=== PATIENT | female | born 1995 | race Caucasian/White ===

== ENCOUNTER 2022-03-13 09:18 | Emergency (ER) | payer BC, SELFPAY ==
[2022-03-13 09:27] VITALS: BP 118/84; PULSE 78; RESP 18; TEMP 36.4; O2SAT 98; BMI 41.0
--- NOTE | 2022-03-13 09:49 | CRLHL7_ITS ---
For Patients: As a result of the Century Cures Act, medical imaging exams and procedure reports are released immediately into your electronic medical record. You may view this report before your referring provider. If you have questions, please contact your health care provider. Indication: Pain Technique: Three views right ankle Comparison: No comparison Findings: Normal alignment. No acute fractures or acute abnormalities. Talar Dome intact. Impression: Dictated by Kina Galicia MD @ 03/13/2022 11:11:24 AM (Electronically Signed)
--- NOTE | 2022-03-13 10:07 | ED_ITS ---
HPI - Extremity Injury (Lower) General Date Seen: 03/13/22 Chief Complaint: Extremity Pain/Injury, Lower Stated Complaint: No weight on right ankle Time Seen by Provider: 03/13/22 09:19 Source: patient Mode of arrival: ambulatory Limitations: no limitations History of Present Illness HPI Narrative: Patient is a nice 26-year-old female presents here with right heel pain, inability to bear weight on her heel. It was sore yesterday but worse today, she has a history of ankle issues, and head which she describes is nonspecific tendon issues in the past., any time she bears weight she has intense pain over this area, she localizes back to her heel region. Does not remember a pop, or pull, or no history of previous rupture. Eyes any numbness tingling or weakness, she thinks it is a little bit swollen, but there is no redness, and no fevers chills or other issues. complaint: other Onset (ago): hour(s) Injury: Right: ankle Type of Injury: other Severity: moderate Relieving factors: nothing Exacerbating factors: weight bearing and movement Context: other Other symptoms: none Treatments prior to arrival: cold therapy and NSAIDS Review of Systems Status of ROS: Reports: 6 or more systems reviewed and unremarkable except as noted in History and below [facility] Social History Smoking Status: Current every day smoker What tobacco products do you use: cigarettes Do you use any of these nicotine containing products: None Second hand tobacco smoke exposure: Yes How often do you have a drink containing alcohol: monthly or less How many standard drinks containing alcohol do you have on a typical day: 1 or 2 How often do you have six or more drinks on one occasion: Never AUDIT-C Alcohol total score: 1 Non-prescribed substance use: denies use service: No Exam Narrative: Exam Narrative: Examination reveals an nice lady in no apparent distress her heel is kept in the plantar flex position, her a forefoot has no tenderness to palpation, she does have a tattoo over this area, which is old she tells me. There is no swelling, DP and posterior tibial pulses are normal, a little bit of soreness over the anterior Talo fib area, she is tender to palpation over the insertion of the Achilles on the calcaneus, and above this along the mariam 10 dull region. Do not feel a step-off, and she has a normal Jules test. Any sort of dorsiflexion of her front reproduces her discomfort.. Const: Vital Signs, click to edit/add: Vital Signs - 24 hr 03/13/22 09:27 Temperature 97.6 F Pulse Rate [Right Pulse Oximeter] 78 Respiratory Rate 18 Blood Pressure [Ri ght Upper Arm] 118/84 Pulse Oximetry 98 Oxygen Delivery Me thod Room Air Course Course Hospital Course: I did do an ultrasound limited of the right Achilles tendon, and the insertion on the calcaneus, this showed a small amount of fluid around the tendon, but the tendon moves through good range of motion she is able to come through to neutral position. Your some tenderness and some pain associated with this. I think this is more of a Achilles peritendinitis, I do not see any evidence of a ruptured Achilles. Vital Signs Vital signs: Initial Vital Signs Temperature 97.6 F 03/13/22 09:27 Temperature Source Temporal Artery Scan 03/13/22 09:27 Pulse Rate 78 03/13/22 09:27 Respiratory Rate 18 03/13/22 09:27 Blood Pressure 118/84 03/13/22 09:27 Blood Pressure Mean 95 03/13/22 09:27 Blood Pressure Position Sitting 03/13/22 09:27 Pulse Oximetry 98 03/13/22 09:27 Oxygen Delivery Method 03/13/22 09:27 Vital Signs Temperature 97.6 F 03/13/22 09:27 Pulse Rate 78 03/13/22 09:27 Respiratory Rate 18 03/13/22 09:27 Blood Pressure 118/84 03/13/22 09:27 Pulse Oximetry 98 03/13/22 09:27 Oxygen Delivery Method 03/13/22 09:27 Temperature 97.6 F 03/13/22 09:27 Pulse Rate 78 03/13/22 09:27 Respiratory Rate 18 03/13/22 09:27 Blood Pressure 118/84 03/13/22 09:27 Pulse Oximetry 98 03/13/22 09:27 Oxygen Delivery Method 03/13/22 09:27 MDM - Extremity Injury (Lower) MDM Narrative Medical decision making narrative: I discussed with her that we will get an x-ray, I will ultrasound the Achilles on the right side, I do not think this is a tear given the presentation, but we a partial tear is a possibility. For likely this is a peritendinitis, or possibly an ankle strain. Doubt whether this is gout, or some other rheumatologic issue. Or such as as infection, Medical Records Attestation: I reviewed the patient's medical records. Lab Data Attestation: I reviewed the patient's lab results. Imaging Data Ankle x-ray: Attestation: I have reviewed the pertinent imaging results. My impression: Negative ankle x-ray for fracture nothing acute Radiologist's impression: Patient: TERESA AMOS Facility: [facility] Site . Site : 1995 Study: XRay Extremity Left ANKLE 3V-03/13/2022 10:01:13 AM Ordering Physician: Berny Allen Final Report: Indication: Pain Technique: Three views right ankle Comparison: No comparison Findings: Normal alignment. No acute fractures or acute abnormalities. Talar Dome intact. Impression: Dictated by Kina Galicia MD @ 03/13/2022 11:11:24 AM (Electronic Signature) Discharge Plan Discharge Clinical Impression: Achilles tendinitis of right lower extremity Patient Disposition: Home, Self-Care Condition: Stable Instructions: Achilles Tendinitis (ED), Tendinitis (ED) Additional Instructions: Home rest crutches for the next 3-5 days, follow-up with primary care, would recommend ibuprofen 800 mg p.o. t.i.d., also icing using a bag of peas t.i.d. is also very helpful. You may also use Voltaren gel which is [id number] you can put this on twice daily. Over that area. Should be off work for the next 3-4 days, nonweightbearing as much as possible in the right Achilles, follow-up with primary care orthopedics or sports medicine Follow Up/Referrals: Tae Bowen MD [Staff Physician] - Provider,Not a Local [Primary Care Provider] - Stand Alone Forms: [employer] Info Instructions
--- NOTE | 2022-03-13 11:49 | ED.NURSE ---
did get crutches and was able to ambulate with them reports that she has had them in the past. was given note for her work to be off 3-4 days.
== END 2022-03-13 11:45 | disposition home or self-care (01) ==
PROVIDERS: Emergency Provider Family Medicine
DX: M76.61 Achilles tendinitis, right leg (principal)
CPT/HCPCS: 73610; 99283

== ENCOUNTER 2022-04-08 14:00 | Outpatient (RCR) | payer BC, SELFPAY | END 2023-01-13 23:59 | disposition home or self-care (01) | PROVIDERS: Visit Provider Physician Assistant Surgical | DX: M76.62 Achilles tendinitis, left leg (principal) | CPT/HCPCS: 97110; 97140; 97162 ==

== ENCOUNTER 2022-04-18 16:47 | Emergency (ER) | payer BC, SELFPAY ==
[2022-04-18 17:04] VITALS: BP 139/81; PULSE 102; RESP 20; TEMP 36.6; O2SAT 98; BMI 39.1
--- NOTE | 2022-04-18 17:16 | ED.NAVMDI ---
HPI - Nausea/Vomiting/Diarrhea General Chief complaint: Nausea/Vomiting Stated complaint: Vomiting Time Seen by Provider: 04/18/22 16:51 History of Present Illness HPI Narrative: This 27-year-old female comes in because of nausea and vomiting since yesterday. She states that she had a test the turned positive yesterday and since then has been vomiting. She is otherwise in good health. She is requesting a quantitative beta hCG level as she has had problems in the past with miscarriages. She does not report any cramping or bleeding currently. Related Data Home Medications Medication Instructions Recorded Confirmed acetaminophen 650 mg 650 mg PO Q8H 03/17/22 03/23/22 tablet,extended release albuterol sulfate 90 mcg/actuation 2 puff inhalation Q6H PRN 03/17/22 03/23/22 aerosol inhaler docosahexaenoic acid 200 mg mg PO 03/17/22 03/23/22 capsule ( DHA) ibuprofen 800 mg tablet 800 mg PO PRN 03/17/22 03/23/22 metformin 500 mg tablet 500 mg PO BID 03/17/22 03/23/22 Allergies Allergy/AdvReac Type Severity Reaction Status Date / Time latex AdvReac Anaphylaxis Verified 03/23/22 14:06 peppermint AdvReac Anaphylaxis Verified 03/23/22 14:06 Review of Systems Status of ROS: Reports: 10 or more systems reviewed and unremarkable except as noted in History and below Narrative: Constitutional: No fevers, no weight gain or loss. Eyes: No discharge. No vision changes. HENT: No congestion, no sore throat, no ear pain. Cardiovascular: No chest pain, no palpitations. Respiratory: No shortness of breath, no wheezes, no cough. Gastrointestinal: No abdominal pain. No diarrhea. Nausea with vomiting. Genitourinary: No dysuria, no hematuria. Musculoskeletal: Normal range of motion. Skin: No rashes, no pruritis. Neurological: No dizziness, weakness, sensory change, speech change. Endo/Heme/Allergies: No bruising or bleeding. No polydipsia. Pysch: no suicidality, no anxiety, no insomnia. All other systems reviewed and are negative. PFS PFS Medical History (Updated 04/18/22 @ 17:50 by Melvni Frye MD) Internal derangement of ankle Surgical History (Updated 03/17/22 @ 14:43 by Willa Renae CMA) History of cholecystectomy History of tonsillectomy and adenoidectomy Previous section Family History (Updated 03/17/22 @ 14:43 by Willa Renae CMA) Mother Deep vein thrombosis Father Deep vein thrombosis Social History Smoking Status: Never smoker Do you use any of these nicotine containing products: None Second hand tobacco smoke exposure: Yes How often do you have a drink containing alcohol: monthly or less How many standard drinks containing alcohol do you have on a typical day: 1 or 2 How often do you have six or more drinks on one occasion: Never AUDIT-C Alcohol total score: 1 Non-prescribed substance use: denies use service: No Exam Narrative: Exam Narrative: Constitutional: Well-developed, well-nourished, no acute distress. HEENT: Normocephalic, atraumatic. Neck: Normal range of motion. Nontender. Supple. Heart: Regular. No murmurs. Normal rate. Intact distal pulses. Lungs: Clear to auscultation. No chest discomfort. No wheezes, rhonchi, or rales. Abdomen: Normal bowel sounds. Nontender. No rebound tenderness. Genitalia: Deferred. Back: No midline tenderness. Normal range of motion. Extremities: Normal range of motion. No injury. Skin: Intact. No rash. Warm. No erythema or pallor. Neurologic: No altered sensation. No weakness. Alert and oriented. Psychiatric: No suicidality. No anxiety or depression. No insomnia. Nursing notes and vitals signs are reviewed. Const: Vital Signs, click to edit/add: Vital Signs - 24 hr 04/18/22 17:04 Temperature 98 F Pulse Rate [Pulse Oximeter] 102 H Respiratory Rate 20 Blood Pressure [Ri ght Upper Arm] 139/81 Pulse Oximetry 98 Oxygen Delivery Me thod Room Air Course Vital Signs Vital signs: Initial Vital Signs Temperature 98 F 04/18/22 17:04 Temperature Source Temporal Artery Scan 04/18/22 17:04 Pulse Rate 102 H 04/18/22 17:04 Respiratory Rate 20 04/18/22 17:04 Blood Pressure 139/81 04/18/22 17:04 Blood Pressure Mean 100 04/18/22 17:04 Blood Pressure Position Supine 04/18/22 17:04 Pulse Oximetry 98 04/18/22 17:04 Oxygen Delivery Method 04/18/22 17:04 Vital Signs Temperature 98 F 04/18/22 17:04 Pulse Rate 102 H 04/18/22 17:04 Respiratory Rate 20 04/18/22 17:04 Blood Pressure 139/81 04/18/22 17:04 Pulse Oximetry 98 04/18/22 17:04 Oxygen Delivery Method 04/18/22 17:04 Temperature 98 F 04/18/22 17:04 Pulse Rate 102 H 04/18/22 17:04 Respiratory Rate 20 04/18/22 17:04 Blood Pressure 139/81 04/18/22 17:04 Pulse Oximetry 98 04/18/22 17:04 Oxygen Delivery Method 04/18/22 17:04 MDM - Nausea/Vomiting/Diarrhea MDM Narrative Medical decision making narrative: This patient comes in with vomiting related to . An IV was established where she received a L of normal saline and 4 mg of Zofran. A lab was drawn to find a quantitative value of HCG. This was done more for comparison purposes as she has had miscarriages in the past. She received a prescription for Zofran. Discharge Plan Discharge Clinical Impression: Hyperemesis gravidarum Patient Disposition: Home, Self-Care Condition: Stable Additional Instructions: Take medication as needed and indicated. Follow up with MD or return if worsening. Prescriptions: No Action ibuprofen 800 mg tablet 800 mg PO PRN metformin 500 mg tablet 500 mg PO BID acetaminophen 650 mg tablet extended release 650 mg PO Q8H albuterol sulfate 90 mcg/actuation HFA aerosol inhaler 2 puff inhalation Q6H PRN DHA 200 mg capsule PO Follow Up/Referrals: Provider,Not a Local [Primary Care Provider] - Stand Alone Forms: [employer] Info Instructions
[2022-04-18] MEDS: 0.9 % SODIUM CHLORIDE 1000 ml 1,000 ML IV (17:40)
[2022-04-18] MEDS: ONDANSETRON 2 MG/ML inj 4 MG IVP (17:41)
[2022-04-18 18:30] LABS: HCG Quantitative* < 2.39 mIU/mL
== END 2022-04-18 18:35 | disposition home or self-care (01) ==
PROVIDERS: Emergency Provider Emergency Medicine Emergency Medical Services
DX: O21.0 Mild hyperemesis gravidarum (principal); Z3A.00 Weeks of gestation of pregnancy not specified
CPT/HCPCS: 36415; 84702; 96361; 96374; 99284; J2405; J7030

== ENCOUNTER 2022-04-26 10:21 | Emergency (ER) | payer BC, SELFPAY ==
[2022-04-26 10:31] VITALS: BP 120/69; PULSE 96; RESP 20; TEMP 36.6; O2SAT 95; BMI 43.0
--- NOTE | 2022-04-26 10:56 | ED.GENADULT ---
HPI - General Adult General Time Seen by Provider: 10:57 Date Seen: 04/26/22 Chief complaint: Sore Throat Stated complaint: 4 weeks /Vaginal bleeding/sore throat Time Seen by Provider: 04/26/22 10:44 Source: patient Mode of arrival: ambulatory Limitations: no limitations History of Present Illness HPI narrative: Patient is a 19-year-old female has had miscarriages in the past, she has had a , she reports she had a positive test about a week ago her LMP was 913 putting her at about estimated gestational age 6 weeks +6 days. She has had some vaginal bleeding, also reports a sore scratchy throat. She has had COVID vaccine. She has got a history of polycystic ovarian syndrome, and she has had multiple miscarriages by her report. No chest pain, no breathing problem, no passage of tissue Related Data Home Medications Medication Instructions Recorded Confirmed acetaminophen 650 mg 650 mg PO Q8H 03/17/22 03/23/22 tablet,extended release albuterol sulfate 90 mcg/actuation 2 puff inhalation Q6H PRN 03/17/22 03/23/22 aerosol inhaler docosahexaenoic acid 200 mg mg PO 03/17/22 03/23/22 capsule ( DHA) ibuprofen 800 mg tablet 800 mg PO PRN 03/17/22 03/23/22 metformin 500 mg tablet 500 mg PO BID 03/17/22 03/23/22 Allergies Allergy/AdvReac Type Severity Reaction Status Date / Time latex AdvReac Anaphylaxis Verified 03/23/22 14:06 peppermint AdvReac Anaphylaxis Verified 03/23/22 14:06 Review of Systems Status of ROS: Reports: 6 or more systems reviewed and unremarkable except as noted in History and below [facility] Medical History Internal derangement of ankle Surgical History History of cholecystectomy History of tonsillectomy and adenoidectomy Previous section Family History Mother Deep vein thrombosis Father Deep vein thrombosis Social History Smoking Status: Current every day smoker What tobacco products do you use: cigarettes Do you use any of these nicotine containing products: None Second hand tobacco smoke exposure: Yes How often do you have a drink containing alcohol: never AUDIT-C Alcohol total score: 0 Non-prescribed substance use: denies use service: No Exam Narrative: Exam Narrative: Objective: Patient is alert orient x3 Abdomen no complaints of pain Vital signs unremarkable Neurologic grossly nonfocal, good peripheral perfusion HEENT shows slightly reddened throat no exudate no prominent peritonsillar tissue, able to open her mouth fully Const: Vital Signs, click to edit/add: Vital Signs - 24 hr 04/26/22 10:31 Temperature 97.9 F Pulse Rate [Pulse Oximeter] 96 Respiratory Rate 20 Blood Pressure [Ri ght Upper Arm] 120/69 Pulse Oximetry 95 Oxygen Delivery Me thod Room Air Course Vital Signs Vital signs: Initial Vital Signs Temperature 97.9 F 04/26/22 10:31 Temperature Source Temporal Artery Scan 04/26/22 10:31 Pulse Rate 96 04/26/22 10:31 Respiratory Rate 20 04/26/22 10:31 Blood Pressure 120/69 04/26/22 10:31 Blood Pressure Mean 86 04/26/22 10:31 Blood Pressure Position Supine 04/26/22 10:31 Pulse Oximetry 95 04/26/22 10:31 Oxygen Delivery Method 04/26/22 10:31 Vital Signs Temperature 97.9 F 04/26/22 10:31 Pulse Rate 96 04/26/22 10:31 Respiratory Rate 20 04/26/22 10:31 Blood Pressure 120/69 04/26/22 10:31 Pulse Oximetry 95 04/26/22 10:31 Oxygen Delivery Method 04/26/22 10:31 Temperature 97.9 F 04/26/22 10:31 Pulse Rate 96 04/26/22 10:31 Respiratory Rate 20 04/26/22 10:31 Blood Pressure 120/69 04/26/22 10:31 Pulse Oximetry 95 04/26/22 10:31 Oxygen Delivery Method 04/26/22 10:31 Medical Decision Making MDM Narrative Medical decision making narrative: Patient is about 6 weeks 6 days estimated gestational age by LMP of 913. Will check a quantitative HCG . Will check a ultrasound given she is about 6 weeks. She is A positive blood type by clinic chart review. Disposition pending findings above Addendum: The patient's quantitative hCG is negative, therefore a ultrasound not be done, it was actually negative last visit as well. The patient has a negative strep and negative COVID test. Rest light activity fluids, follow up with regular doctor as needed Lab Data Labs: Lab Results 04/26/22 04/26/22 04/26/22 Range/Units 11:00 11:00 11:15 HCG, Quant < 2.39 mIU/mL SARS-CoV-2 (PCR) Negative SARS-CoV-2 (Negative) Group A Strep DNA NOT DETECTED (Not Detectd) Discharge Plan Discharge Clinical Impression: Vaginal bleeding, Pharyngitis Patient Disposition: Home, Self-Care Condition: Stable Additional Instructions: Rest, fluids, light activity, Tylenol as needed, update regular doctor the next few days as needed, return to ED as needed. Activity Level: No Restrictions Discharge Diet: Regular Prescriptions: No Action ibuprofen 800 mg tablet 800 mg PO PRN metformin 500 mg tablet 500 mg PO BID acetaminophen 650 mg tablet extended release 650 mg PO Q8H albuterol sulfate 90 mcg/actuation HFA aerosol inhaler 2 puff inhalation Q6H PRN DHA 200 mg capsule PO Follow Up/Referrals: Provider,Not a Local [Referring] - Stand Alone Forms: [employer] Info Instructions
--- NOTE | 2022-04-26 11:08 | ED.NURSE ---
pt nasal swab for covid, throat swabbed for strep. pt resting in room, on phone.
[2022-04-26 11:50] LABS: Strep A DNA Probe* NOT DETECTED (Not Detectd)
[2022-04-26 12:04] LABS: HCG Quantitative* < 2.39 mIU/mL
[2022-04-26 12:06] LABS: SARS PCR* Negative SARS-CoV-2 (Negative)
== END 2022-04-26 12:31 | disposition home or self-care (01) ==
PROVIDERS: Emergency Provider Family Medicine; PCP Student in an Organized Health Care Education/Training Program
DX: J02.9 Acute pharyngitis, unspecified (principal); O20.9 Hemorrhage in early pregnancy, unspecified
CPT/HCPCS: 36415; 84702; 87635; 87651; 99283

== ENCOUNTER 2022-06-08 10:15 | Emergency (ER) | payer OTHER, BC, SELFPAY ==
[2022-06-08 10:47] VITALS: BP 131/85; PULSE 92; RESP 18; TEMP 36.3; O2SAT 99; BMI 42.0
--- NOTE | 2022-06-08 11:05 | CRLHL7_ITS ---
For Patients: As a result of the Century Cures Act, medical imaging exams and procedure reports are released immediately into your electronic medical record. You may view this report before your referring provider. If you have questions, please contact your health care provider. Indication: Fall Technique: Three views right hand Comparison: None Findings: Deformity of the distal radius noted. This is incompletely evaluated. No evidence of metacarpal or phalangeal fracture. Impression: Radial metaphyseal deformity and possible carpal malalignment versus positioning. Dedicated wrist films recommended. Dictated by Rick Guillory MD @ 06/08/2022 12:05:27 PM (Electronically Signed)
--- NOTE | 2022-06-08 11:44 | ED_ITS ---
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 She has had pain in inability to really move it around since, this occurred approximately an hour ago, no other trauma to her shoulders elbow neck or back, there is no loss conscious or any other injury, she presents here for diagnosis and help. complaint: injury to: right, hand and finger Onset (ago): minute(s) Other Extremity Injury: Right: hand Other injuries: none Hand dominance: Right Place: work Severity: moderate Relieving factors: none Exacerbating factors: none Context: fall and direct blow Associated symptoms: denies other symptoms Treatments prior to arrival: NSAIDS Related Data Home Medications Medication Instructions Recorded Confirmed acetaminophen 650 mg 650 mg PO Q8H 03/17/22 03/23/22 tablet,extended release albuterol sulfate 90 mcg/actuation 2 puff inhalation Q6H PRN 03/17/22 03/23/22 aerosol inhaler docosahexaenoic acid 200 mg mg PO 03/17/22 03/23/22 capsule ( DHA) ibuprofen 800 mg tablet 800 mg PO PRN 03/17/22 03/23/22 metformin 500 mg tablet 500 mg PO BID 03/17/22 03/23/22 Allergies Allergy/AdvReac Type Severity Reaction Status Date / Time latex AdvReac Anaphylaxis Verified 03/23/22 14:06 peppermint AdvReac Anaphylaxis Verified 03/23/22 14:06 Review of Systems Status of ROS: Reports: 6 or more systems reviewed and unremarkable except as noted in History and below [facility] Medical History Internal derangement of ankle Surgical History History of cholecystectomy History of tonsillectomy and adenoidectomy Previous section Family History Mother Deep vein thrombosis Father Deep vein thrombosis Social History Smoking Status: Current every day smoker What tobacco products do you use: cigarettes Do you use any of these nicotine containing products: None Second hand tobacco smoke exposure: Yes How often do you have a drink containing alcohol: never AUDIT-C Alcohol total score: 0 Non-prescribed substance use: denies use service: No Exam Narrative: Exam Narrative: Examination shows a fit healthy female oriented x3 in room 7, examination of the right hand shows bruising noted over the 4th metacarpal, there was no loss of symmetry along the metacarpals, 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 Const: Vital Signs, click to edit/add: Vital Signs - 24 hr 06/08/22 10:47 Temperature 97.3 F L Pulse Rate [Pulse Oximeter] 92 Respiratory Rate 18 Blood Pressure [Le ft Upper Arm] 131/85 Pulse Oximetry 99 Oxygen Delivery Me thod Room Air Documenting provider has reviewed patient's vital signs: yes Course Course Hospital Course: X-rays are done by this ER physician on the right hand, interpreted these as showing no evidence of fracture, no other in abnormality seen. I explained this to the patient after this, Tylenol ibuprofen and ice, think this is more of a contusion type situation. Vital Signs Vital signs: Initial Vital Signs Temperature 97.3 F L 06/08/22 10:47 Temperature Source Temporal Artery Scan 06/08/22 10:47 Pulse Rate 92 06/08/22 10:47 Respiratory Rate 18 06/08/22 10:47 Blood Pressure 131/85 06/08/22 10:47 Blood Pressure Mean 100 06/08/22 10:47 Blood Pressure Position Supine 06/08/22 10:47 Pulse Oximetry 99 06/08/22 10:47 Oxygen Delivery Method 06/08/22 10:47 Vital Signs Temperature 97.3 F L 06/08/22 10:47 Pulse Rate 92 06/08/22 10:47 Respiratory Rate 18 06/08/22 10:47 Blood Pressure 131/85 06/08/22 10:47 Pulse Oximetry 99 06/08/22 10:47 Oxygen Delivery Method 06/08/22 10:47 Temperature 97.3 F L 06/08/22 10:47 Pulse Rate 92 06/08/22 10:47 Respiratory Rate 18 06/08/22 10:47 Blood Pressure 131/85 06/08/22 10:47 Pulse Oximetry 99 06/08/22 10:47 Oxygen Delivery Method 06/08/22 10:47 Discharge Plan Discharge Clinical Impression: Contusion of hand Patient Disposition: Home, Self-Care Condition: Stable Instructions: Contusion in Adults (ED) Additional Instructions: Home rest use of light duty, lifting less than 3 lb with the right hand, Tylenol ibuprofen for discomfort, icing, this should improve over the next 3-4 days. X- rays are negative, but if continued pain follow-up with primary care Prescriptions: No Action ibuprofen 800 mg tablet 800 mg PO PRN metformin 500 mg tablet 500 mg PO BID acetaminophen 650 mg tablet extended release 650 mg PO Q8H albuterol sulfate 90 mcg/actuation HFA aerosol inhaler 2 puff inhalation Q6H PRN DHA 200 mg capsule PO Follow Up/Referrals: Tosha Bassett PA-C [Primary Care Provider] - Stand Alone Forms: [employer] Info Instructions
[2022-06-08] MEDS: IBUPROFEN 400 MG TABLET 800 MG PO (11:55)
== END 2022-06-08 12:00 | disposition home or self-care (01) ==
PROVIDERS: Emergency Provider Family Medicine; PCP Student in an Organized Health Care Education/Training Program
DX: S60.221A Contusion of right hand, initial encounter (principal); W22.8XXA Striking against or struck by other objects, initial encounter; Y93.9 Activity, unspecified; Y92.511 Restaurant or cafe as the place of occurrence of the external cause; Y99.0 Civilian activity done for income or pay
CPT/HCPCS: 73130; 99283; A9270

== ENCOUNTER 2022-06-23 15:24 | Emergency (ER) | payer BC, SELFPAY ==
--- NOTE | 2022-06-23 15:43 | ED.NURSE ---
pt. was upset about her child not being able to come back per our policy at this time. pt. was angered and left without being seen by MD. pt. did not sign refusall form.
== END 2022-06-23 15:43 | disposition left against medical advice (07) ==
LOC: ED 15:29
PROVIDERS: PCP Student in an Organized Health Care Education/Training Program
DX: Z53.21 Procedure and treatment not carried out due to patient leaving prior to being seen by health care provider (principal)

== ENCOUNTER 2022-10-01 12:06 | Emergency (ER) | payer OTHER, BC, SELFPAY ==
[2022-10-01 12:15] VITALS: BP 135/106; PULSE 90; RESP 18; TEMP 36.5; O2SAT 99; BMI 41.0
--- NOTE | 2022-10-01 13:12 | ED_ITS ---
HPI - General Adult General Chief complaint: Head Injury/Pain Stated complaint: R leg/hip injury--crushed yesterday Time Seen by Provider: 10/01/22 12:24 History of Present Illness HPI narrative: This 27-year-old female comes in for evaluation of an injury that occurred at work yesterday around noon. She states that about 50 lb of sheet metal of fell off of a truck and landed on her right hip region. She states that she did not hit her head or have loss of consciousness. She was able to get up and ambulate but reports pain in the inguinal region of the right hip joint and occasions where her pain will shoot down her right leg and up into her back. Related Data Home Medications Medication Instructions Recorded Confirmed acetaminophen 650 mg 650 mg PO Q8H 03/17/22 03/23/22 tablet,extended release albuterol sulfate 90 mcg/actuation 2 puff inhalation Q6H PRN 03/17/22 03/23/22 aerosol inhaler docosahexaenoic acid 200 mg mg PO 03/17/22 03/23/22 capsule ( DHA) ibuprofen 800 mg tablet 800 mg PO PRN 03/17/22 03/23/22 metformin 500 mg tablet 500 mg PO BID 03/17/22 03/23/22 Previous Rx's Medication Instructions Recorded cyclobenzaprine 10 mg tablet 10 mg PO TID #15 tabs 10/01/22 ketorolac 10 mg tablet 10 mg PO Q8H 5 days #15 tabs 10/01/22 Allergies Allergy/AdvReac Type Severity Reaction Status Date / Time latex AdvReac Anaphylaxis Verified 03/23/22 14:06 peppermint AdvReac Anaphylaxis Verified 03/23/22 14:06 Review of Systems Status of ROS: Reports: 10 or more systems reviewed and unremarkable except as noted in History and below Narrative: Constitutional: No fevers, no weight gain or loss. Eyes: No discharge. No vision changes. HENT: No congestion, no sore throat, no ear pain. Cardiovascular: No chest pain, no palpitations. Respiratory: No shortness of breath, no wheezes, no cough. Gastrointestinal: No abdominal pain, no vomiting, no diarrhea. Genitourinary: No dysuria, no hematuria. Musculoskeletal: Pain with movement of her right hip joint. She is able to ambulate. Skin: No rashes, no pruritis. Neurological: No dizziness, weakness, sensory change, speech change. Endo/Heme/Allergies: No bruising or bleeding. No polydipsia. Pysch: no suicidality, no anxiety, no insomnia. All other systems reviewed and are negative. [facility], LAT[facility] Medical History Internal derangement of ankle Surgical History History of cholecystectomy History of tonsillectomy and adenoidectomy Previous section Family History Mother Deep vein thrombosis Father Deep vein thrombosis Social History Smoking Status: Current every day smoker What tobacco products do you use: cigarettes Do you use any of these nicotine containing products: None Second hand tobacco smoke exposure: Yes How often do you have a drink containing alcohol: never AUDIT-C Alcohol total score: 0 Non-prescribed substance use: denies use service: No Exam Narrative: Exam Narrative: Constitutional: Well-developed, well-nourished, no acute distress. HEENT: Normocephalic, atraumatic. Neck: Normal range of motion. Nontender. Supple. Heart: Intact distal pulses. Lungs: No chest discomfort. No wheezes, rhonchi, or rales. Abdomen: Nontender. Back: Normal range of motion. Extremities: Pain with movement of her right hip joint. She reports a persistent discomfort in the inguinal region of her right hip joint. Skin: Intact. No rash. Warm. No erythema or pallor. Neurologic: No altered sensation. No weakness. Alert and oriented. Psychiatric: No suicidality. No anxiety or depression. No insomnia. Nursing notes and vitals signs are reviewed. Const: Vital Signs, click to edit/add: Vital Signs - 24 hr 10/01/22 12:15 10/01/22 13:38 10/01/22 13:39 Temperature 97.7 F Pulse Rate 73 82 Pulse Rate [Right Pulse Oximeter] 90 Respiratory Rate 18 Blood Pressure 135/85 Blood Pressure [Ri ght Upper Arm] 135/106 H Pulse Oximetry 99 100 99 Oxygen Delivery Me thod Room Air 10/01/22 13:45 Temperature Pulse Rate 84 Pulse Rate [Right Pulse Oximeter] Respiratory Rate Blood Pressure Blood Pressure [Ri ght Upper Arm] Pulse Oximetry 99 Oxygen Delivery Me thod Course Vital Signs Vital signs: Initial Vital Signs Temperature 97.7 F 10/01/22 12:15 Temperature Source Temporal Artery Scan 10/01/22 12:15 Pulse Rate 90 10/01/22 12:15 Respiratory Rate 18 10/01/22 12:15 Blood Pressure 135/106 H 10/01/22 12:15 Blood Pressure Mean 115 10/01/22 12:15 Blood Pressure Position Sitting 10/01/22 12:15 Pulse Oximetry 99 10/01/22 12:15 Oxygen Delivery Method Room Air 10/01/22 12:15 Vital Signs Temperature 97.7 F 10/01/22 12:15 Pulse Rate 90 10/01/22 12:15 Respiratory Rate 18 10/01/22 12:15 Blood Pressure 135/106 H 10/01/22 12:15 Pulse Oximetry 99 10/01/22 12:15 Oxygen Delivery Method Room Air 10/01/22 12:15 Temperature 97.7 F 10/01/22 12:15 Pulse Rate 84 10/01/22 13:45 Respiratory Rate 18 10/01/22 12:15 Blood Pressure 135/85 10/01/22 13:39 Pulse Oximetry 99 10/01/22 13:45 Oxygen Delivery Method Room Air 10/01/22 12:15 Medical Decision Making MDM Narrative Medical decision making narrative: This patient comes in for evaluation of injury at work that occurred yesterday. X-ray imaging of her pelvis shows no acute findings. She has some soft tissue contusion and muscle strain explaining her symptoms. She is ambulatory and okay to return resume activity as tolerated. She did received prescription for Toradol and Flexeril. Imaging Data XR Pelvis: Radiologist's impression: Normal examination of the pelvis. Discharge Plan Discharge Clinical Impression: Contusion of hip, right Patient Disposition: Home, Self-Care Condition: Stable Additional Instructions: Take medication as needed and indicated. Follow up with MD or return if worsening. Prescriptions: New cyclobenzaprine 10 mg tablet 10 mg PO TID Qty: 15 0RF ketorolac 10 mg tablet 10 mg PO Q8H 5 Days Qty: 15 0RF No Action ibuprofen 800 mg tablet 800 mg PO PRN metformin 500 mg tablet 500 mg PO BID acetaminophen 650 mg tablet extended release 650 mg PO Q8H albuterol sulfate 90 mcg/actuation HFA aerosol inhaler 2 puff inhalation Q6H PRN DHA 200 mg capsule PO Follow Up/Referrals: Tosha Bassett PA-C [Primary Care Provider] - Stand Alone Forms: [employer] Info Instructions
--- NOTE | 2022-10-01 13:12 | CRLHL7_ITS ---
For Patients: As a result of the Cures Act, medical imaging exams and procedure reports are released immediately into your electronic medical record. You may view this report before your referring provider. If you have questions, please contact your health care provider. Indication: Injury Technique: Single view of the pelvis Comparison: None Findings: The osseous structures of the pelvis appear normal. This includes the visualized lower lumbar spine, sacrum, both innominate bones and both hip joints. Soft tissues appear normal by plain radiography. Impression: Normal examination of the pelvis Dictated by Emil Craig MD @ 10/01/2022 2:36:10 PM (Electronically Signed)
[2022-10-01 13:38] VITALS: PULSE 73; O2SAT 100
[2022-10-01 13:39] VITALS: BP 135/85; PULSE 82; O2SAT 99
[2022-10-01 13:45] VITALS: PULSE 84; O2SAT 99
== END 2022-10-01 15:00 | disposition home or self-care (01) ==
PROVIDERS: Emergency Provider Emergency Medicine Emergency Medical Services; PCP Student in an Organized Health Care Education/Training Program
DX: S70.01XA Contusion of right hip, initial encounter (principal); W22.8XXA Striking against or struck by other objects, initial encounter
CPT/HCPCS: 72170; 99283; 99284

== ENCOUNTER 2022-12-02 13:00 | Outpatient (RCR) | payer OTHER, BC, SELFPAY | END 2023-04-01 23:59 | disposition home or self-care (01) | PROVIDERS: PCP Student in an Organized Health Care Education/Training Program; Visit Provider Family Medicine | DX: M25.551 Pain in right hip (principal); S70.11XD Contusion of right thigh, subsequent encounter; Z51.89 Encounter for other specified aftercare | CPT/HCPCS: 97032; 97110; 97140; 97162 ==

== ENCOUNTER 2023-04-30 22:15 | Emergency (ER) | payer BC, SELFPAY ==
[2023-04-30 22:18] VITALS: BP 136/82; PULSE 102; RESP 18; TEMP 36.4; O2SAT 98; BMI 41.1
--- NOTE | 2023-04-30 22:38 | CRLHL7_ITS ---
For Patients: As a result of the Century Cures Act, medical imaging exams and procedure reports are released immediately into your electronic medical record. You may view this report before your referring provider. If you have questions, please contact your health care provider. INDICATION: Right pelvic pain for 3 hours.. TECHNIQUE: Ultrasound pelvis transabdominal and transvaginal for better assessment or to better visualize the endometrium. Real-time sonographic images with spectral and color Doppler imaging of the ovaries were obtained. COMPARISON: None. FINDINGS: Uterus: 8.3 x 4.1 x 5.0 cm. scar. Otherwise, normal echotexture of the myometrium. No masses. Endometrium: Transvaginal imaging was performed to better evaluate the endometrium. Endometrial thickness measures 11 mm. No sign of endometrial mass or fluid. Right ovary measures 3.3 x 2.2 x 2.7 cm. Left ovary measures 2.6 x 1.8 x 2.2 cm. No ovarian or adnexal masses. Normal arterial and venous blood flow is demonstrated in both ovaries. Small amount of simple free fluid about the right ovary. IMPRESSION: No acute findings within the pelvis. No adnexal mass or evidence for ovarian torsion. Small amount of simple free fluid about the right ovary, likely physiologic, possibly on the basis of a recently ruptured cyst or follicle. Dictated by Lobo Tavares MD @ 05/01/2023 12:56:15 AM (Electronically Signed)
--- NOTE | 2023-04-30 22:42 | ED_ITS ---
HPI - General Adult General Date Seen: 04/30/23 <Angélica Beckham MD - Last Filed: 05/03/23 12:00> Chief complaint: Abdominal Pain <Angélica Beckham MD - Last Filed: 05/03/23 12:00> Stated complaint: lower right abdominal pain <Angélica Beckham MD - Last Filed: 05/03/23 12:00> Time Seen by Provider: 04/30/23 22:31 <Angélica Beckham MD - Last Filed: 05/03/23 12:00> Source: patient <Angélica Beckham MD - Last Filed: 05/03/23 12:00> Mode of arrival: ambulatory <Angélica Beckham MD - Last Filed: 05/03/23 12:00> Limitations: no limitations <Angélica Beckham MD - Last Filed: 05/03/23 12:00> History of Present Illness HPI narrative: Patient is a 28-year-old woman notes abrupt onset of right pelvic pain tonight around 7:00 p.m.. She did not take any medications at home. Comes to the ER at 10:30 a.m. for evaluation due to persistent pain. No nausea, vomiting, diarrhea, black or bloody stools. She gets regular menses although she says her cycles typically are 28-30 days apart and her last period was about 15 days late. She says she did take a test at home which was negative, subsequently had her period. No vaginal discharge or other unusual bleeding, no specific suspicion of otherwise. No history of similar pain, she says she has polycystic ovary disease ?on the left ovary, she is status post cholecystectomy, she has had a as well. She notes that diverticulitis or diverticulosis was seen on a previous MRI. No history of kidney stones. No dysuria, frequency urgency or hematuria. She smokes half a pack a day, denies drug or alcohol use. <Angélica Beckham MD - Last Filed: 05/03/23 12:00> Related Data Home medications: Home Medications Medication Instructions Recorded Confirmed acetaminophen 650 mg 650 mg PO Q8H 03/17/22 04/30/23 tablet,extended release albuterol sulfate 90 mcg/actuation 2 puff inhalation Q6H PRN 03/17/22 04/30/23 aerosol inhaler docosahexaenoic acid 200 mg mg PO 03/17/22 03/23/22 capsule ( DHA) ibuprofen 800 mg tablet 800 mg PO PRN 03/17/22 03/23/22 diazepam 2 mg tablet mg PO 04/30/23 tizanidine 2 mg tablet 2 - 4 mg PO muscle relaxation 04/30/23 <Angélica Beckham MD - Last Filed: 05/03/23 12:00> Allergies/adverse reactions: Allergies Allergy/AdvReac Type Severity Reaction Status Date / Time latex AdvReac Anaphylaxis Verified 05/01/23 00:38 peppermint AdvReac Anaphylaxis Verified 05/01/23 00:38 <Angélica Beckham MD - Last Filed: 05/03/23 12:00> Review of Systems Status of ROS: Reports: 10 or more systems reviewed and unremarkable except as noted in History and below <Angélica Beckham MD - Last Filed: 05/03/23 12:00> [facility] Medical History: Medical History Internal derangement of ankle ?M24.9 - Joint derangement, unspecified (ICD-10) <Angélica Beckham MD - Last Filed: 05/03/23 12:00> Surgical History: Surgical History Previous section ?Z98.891 - History of uterine scar from previous surgery (ICD-10) History of cholecystectomy ?Z90.49 - Acquired absence of other specified parts of digestive tract (ICD- 10) History of tonsillectomy and adenoidectomy ?Z90.89 - Acquired absence of other organs (ICD-10) <Angélica Beckhma MD - Last Filed: 05/03/23 12:00> Family History: Family History Mother Deep vein thrombosis Father Deep vein thrombosis <Angélica Beckham MD - Last Filed: 05/03/23 12:00> Social History: Social History Smoking Status: Current every day smoker What tobacco products do you use: cigarettes Smoking packs per day: 0.5 Smoking cigarettes per day: 10.0 Years smoked: 8 Smoking pack-years: 4.00 Do you use any of these nicotine containing products: None Second hand tobacco smoke exposure: No How often do you have a drink containing alcohol: never AUDIT-C Alcohol total score: 0 Non-prescribed substance use: denies use service: No <Angélica Beckham MD - Last Filed: 05/03/23 12:00> Exam Narrative: Exam Narrative: Vital signs as noted above. In general, an alert, well-appearing patient. Head: Normocephalic, atraumatic. Eyes: Pupils are equal reactive. Extraocular movements are full. Conjunctivae are normal. ENT: Mucous membranes are moist. Neck: Supple without lymphadenopathy. Heart: Regular rate and rhythm. No murmur or rub. Lungs: Clear bilaterally. No increased work of breathing, crackles or wheezes. Abdomen: Soft and nondistended, really seems nontender to palpation. She is overweight. Extremities: Well perfused. No edema. No calf tenderness. Pulses intact. Neurologic: Patient is alert and oriented to person and place. Speech is fluent. Face is symmetric. Moves all extremities equally. Affect: Normal. Skin: Warm and dry. Well perfused. <Angélica Beckham MD - Last Filed: 05/03/23 12:00> Const: Vital Signs, click to edit/add: Vital Signs - 24 hr 04/30/23 22:18 05/01/23 01:55 CDT Temperature 97.5 F L 97.6 F Pulse Rate [Pulse Oximeter] 102 H 87 Respiratory Rate 18 16 Blood Pressure [Ri ght Upper Arm] 136/82 152/116 H Pulse Oximetry 98 97 Oxygen Delivery Me thod Room Air Room Air <Angélica Beckham MD - Last Filed: 05/03/23 12:00> Vital Signs, click to edit/add: Vital Signs - 24 hr 04/30/23 22:18 05/01/23 01:55 CDT Temperature 97.5 F L 97.6 F Pulse Rate [Pulse Oximeter] 102 H 87 Respiratory Rate 18 16 Blood Pressure [Ri ght Upper Arm] 136/82 152/116 H Pulse Oximetry 98 97 Oxygen Delivery Me thod Room Air Room Air <Rick Alvarez MD - Last Filed: 05/01/23 01:09 INTELLECTUAL PROPERTY MANAGER> Documenting provider has reviewed patient's vital signs: yes <Angélica Beckham MD - Last Filed: 05/03/23 12:00> Course Course ED Course: Diagnostic considerations include pelvic pathology such as ovarian cyst rupture, torsion, abscess, UTI, kidney stone, pyelonephritis, appendicitis, diverticulitis or colitis among others. Will start with labs, IV fluids, Toradol. Pelvic ultrasound. Preliminary read on the pelvic ultrasound is it is is entirely negative. Her white blood cell count is mildly elevated at 12.6, hemoglobin is normal. No significant left shift. Metabolic panel is normal, lactate is 1. LFTs are unremarkable. CRP is 1.1. UA is negative, test is negative. At this time I do not have an explanation for her pain. Blood flow to the right ovary was good, based on her presentation my suspicion for torsion is quite low, particularly in the absence of any large cyst on the ovary. Plan will be to do a CT scan of the abdomen, my suspicion for appendicitis is low as well given that pain was sudden in onset, but given that white blood cell count CRP are mildly elevated I think it is prudent to rule that out. If that is negative, I think she can go home with symptomatic care, ibuprofen and/or Tylenol and primary care follow-up in a couple of days. <Angélica Beckham MD - Last Filed: 05/03/23 12:00> Vital Signs Vital signs: Initial Vital Signs Temperature 97.5 F L 04/30/23 22:18 Temperature Source Temporal Artery Scan 04/30/23 22:18 Pulse Rate 102 H 04/30/23 22:18 Respiratory Rate 18 04/30/23 22:18 Blood Pressure 136/82 04/30/23 22:18 Blood Pressure Mean 100 04/30/23 22:18 Blood Pressure Position Sitting 04/30/23 22:18 Pulse Oximetry 98 04/30/23 22:18 Oxygen Delivery Method Room Air 04/30/23 22:18 Vital Signs Temperature 97.5 F L 04/30/23 22:18 Pulse Rate 102 H 04/30/23 22:18 Respiratory Rate 18 04/30/23 22:18 Blood Pressure 136/82 04/30/23 22:18 Pulse Oximetry 98 04/30/23 22:18 Oxygen Delivery Method Room Air 04/30/23 22:18 Temperature 97.6 F 05/01/23 01:55 CDT Pulse Rate 87 05/01/23 01:55 CDT Respiratory Rate 16 05/01/23 01:55 CDT Blood Pressure 152/116 H 05/01/23 01:55 CDT Pulse Oximetry 97 05/01/23 01:55 CDT Oxygen Delivery Method Room Air 05/01/23 01:55 CDT <Angélica Beckham MD - Last Filed: 05/03/23 12:00> Initial Vital Signs Temperature 97.5 F L 04/30/23 22:18 Temperature Source Temporal Artery Scan 04/30/23 22:18 Pulse Rate 102 H 04/30/23 22:18 Respiratory Rate 18 04/30/23 22:18 Blood Pressure 136/82 04/30/23 22:18 Blood Pressure Mean 100 04/30/23 22:18 Blood Pressure Position Sitting 04/30/23 22:18 Pulse Oximetry 98 04/30/23 22:18 Oxygen Delivery Method Room Air 04/30/23 22:18 Vital Signs Temperature 97.5 F L 04/30/23 22:18 Pulse Rate 102 H 04/30/23 22:18 Respiratory Rate 18 04/30/23 22:18 Blood Pressure 136/82 04/30/23 22:18 Pulse Oximetry 98 04/30/23 22:18 Oxygen Delivery Method Room Air 04/30/23 22:18 Temperature 97.6 F 05/01/23 01:55 CDT Pulse Rate 87 05/01/23 01:55 CDT Respiratory Rate 16 05/01/23 01:55 CDT Blood Pressure 152/116 H 05/01/23 01:55 CDT Pulse Oximetry 97 05/01/23 01:55 CDT Oxygen Delivery Method Room Air 05/01/23 01:55 CDT <Rick Alvarez MD - Last Filed: 05/01/23 01:09 INTELLECTUAL PROPERTY MANAGER> Medical Decision Making MDM Narrative Medical decision making narrative: EDMUND -- Ice seemed care at change of shift pending final read of CT scan. Ultrasound noting small amount of free fluid in the pelvis. Follow-up CT reviewed by myself and Dr. Beckham looked unremarkable. Radiology over-read as below INDICATION: Right lower quadrant abdominal pain TECHNIQUE: CT abdomen and pelvis acquired with 100 cc Isovue 370 IV contrast. COMPARISON: Pelvic ultrasound April 30, 2023 FINDINGS: Lower chest: Unremarkable. Liver: Unremarkable. Spleen: Unremarkable. Pancreas: Unremarkable. Gallbladder and bile ducts: S/p cholecystectomy. Adrenal glands: Unremarkable. Kidneys: Unremarkable. GI tract: Colonic diverticulosis. Appendix is normal. Vascular structures: Unremarkable. Lymph nodes: Unremarkable. Miscellaneous: Unremarkable. No free air or significant free fluid. Pelvic Organs: Unremarkable. Bones: Unremarkable for age. IMPRESSION: No etiology seen to explain right lower quadrant pain appendix. Colonic diverticulosis without evidence for diverticulitis. Status post cholecystectomy. See patient discharge plan <Rick Alvarez MD - Last Filed: 05/01/23 01:09 INTELLECTUAL PROPERTY MANAGER> Lab Data Lab results reviewed: Yes I reviewed the patient's lab results <Rick Alvarez MD - Last Filed: 05/01/23 01:09 INTELLECTUAL PROPERTY MANAGER> Labs: Lab Results 04/30/23 04/30/23 Range/Units 22:55 23:28 WBC 12.63 H (4.50-11.00) K/uL RBC 4.65 (4.00-5.20) m/uL Hgb 13.5 (12.0-16.0) gm/dL Hct 41.9 (33.0-51.0) % MCV 90 (80-100) fL MCH 29 (26-34) pg MCHC 32 (32-36) gm/dL RDW Coeff of Dave 13.1 (11.5-15.5) % Plt Count 266 (140-440) K/uL Neut % (Auto) 57.6 (42.0-72.0) % Lymph % (Auto) 34.0 (20-44) % Dawes % (Auto) 5.9 (0.0-11.0) % Eos % (Auto) 1.9 (0.0-7.0) % Baso % (Auto) 0.2 (0.0-3.0) % Neut # (Auto) 7.30 H (1.7-7.0) K/uL Lymph # (Auto) 4.30 H (0.90-2.90) K/uL Dawes # (Auto) 0.70 (0.00-0.90) K/UL Eos # (Auto) 0.20 (0.00-0.50) K/uL Baso # (Auto) 0.00 (0.00-0.30) K/uL Abs Immat Gran (auto) 0.10 (0.00-0.30) K/uL Imm/Tot Granulo (auto) 0.4 % Sodium 138 (135-149) mmol/L Potassium 4.0 (3.6-5.1) mmol/L Chloride 104 (96-114) mmol/L Carbon Dioxide 27 (20-32) mmol/L Anion Gap 7 (7-15) mEq/L BUN 12 (5-24) mg/dL Creatinine 0.7 (0.5-1.5) mg/dL Estimated Creat Clear 98.09 Estimated GFR 120 ml/min Glucose 83 (60-115) mg/dL Lactate 1.0 (0.5-1.9) mmol/L Calcium 8.9 (8.4-10.6) mg/dL Total Bilirubin 0.3 (0.1-1.5) mg/dL Direct Bilirubin 0.0 (0.0-0.5) mg/dL AST 35 (12-35) U/L ALT 19 (4-35) U/L Alkaline Phosphatase 43 (40-150) U/L C-Reactive Protein 1.1 H (0.5-1.0) mg/dL Total Protein 6.8 (6.0-8.3) g/dL Albumin 3.9 (3.3-5.0) g/dL HCG, Qual Negative (Negative) Urine Color Yellow (Yellow) Urine Appearance Clear (Clear) Urine pH 6.5 (5.0-8.5) Ur Specific Chelsea 1.010 (1.000-1.030) Urine Protein Negative (Negative) Urine Glucose (UA) Negative (Negative) Urine Ketones Negative (Negative) Urine Blood Negative (Negative) Urine Nitrite Negative (Negative) Urine Bilirubin Negative (Negative) Urine Urobilinogen 0.2 (0.2-1.0) Ur Leukocyte Esterase Negative (Negative) Urine RBC 0-2 (0-2) Urine WBC 0-2 (0-5) Ur Squamous Epith Cells None (None-Few) Urine Bacteria None (None) <Angélica Beckham MD - Last Filed: 05/03/23 12:00> Lab Results 04/30/23 04/30/23 Range/Units 22:55 23:28 WBC 12.63 H (4.50-11.00) K/uL RBC 4.65 (4.00-5.20) m/uL Hgb 13.5 (12.0-16.0) gm/dL Hct 41.9 (33.0-51.0) % MCV 90 (80-100) fL MCH 29 (26-34) pg MCHC 32 (32-36) gm/dL RDW Coeff of Dave 13.1 (11.5-15.5) % Plt Count 266 (140-440) K/uL Neut % (Auto) 57.6 (42.0-72.0) % Lymph % (Auto) 34.0 (20-44) % Dawes % (Auto) 5.9 (0.0-11.0) % Eos % (Auto) 1.9 (0.0-7.0) % Baso % (Auto) 0.2 (0.0-3.0) % Neut # (Auto) 7.30 H (1.7-7.0) K/uL Lymph # (Auto) 4.30 H (0.90-2.90) K/uL Dawes # (Auto) 0.70 (0.00-0.90) K/UL Eos # (Auto) 0.20 (0.00-0.50) K/uL Baso # (Auto) 0.00 (0.00-0.30) K/uL Abs Immat Gran (auto) 0.10 (0.00-0.30) K/uL Imm/Tot Granulo (auto) 0.4 % Sodium 138 (135-149) mmol/L Potassium 4.0 (3.6-5.1) mmol/L Chloride 104 (96-114) mmol/L Carbon Dioxide 27 (20-32) mmol/L Anion Gap 7 (7-15) mEq/L BUN 12 (5-24) mg/dL Creatinine 0.7 (0.5-1.5) mg/dL Estimated Creat Clear 98.09 Estimated GFR 120 ml/min Glucose 83 (60-115) mg/dL Lactate 1.0 (0.5-1.9) mmol/L Calcium 8.9 (8.4-10.6) mg/dL Total Bilirubin 0.3 (0.1-1.5) mg/dL Direct Bilirubin 0.0 (0.0-0.5) mg/dL AST 35 (12-35) U/L ALT 19 (4-35) U/L Alkaline Phosphatase 43 (40-150) U/L C-Reactive Protein 1.1 H (0.5-1.0) mg/dL Total Protein 6.8 (6.0-8.3) g/dL Albumin 3.9 (3.3-5.0) g/dL HCG, Qual Negative (Negative) Urine Color Yellow (Yellow) Urine Appearance Clear (Clear) Urine pH 6.5 (5.0-8.5) Ur Specific Chelsea 1.010 (1.000-1.030) Urine Protein Negative (Negative) Urine Glucose (UA) Negative (Negative) Urine Ketones Negative (Negative) Urine Blood Negative (Negative) Urine Nitrite Negative (Negative) Urine Bilirubin Negative (Negative) Urine Urobilinogen 0.2 (0.2-1.0) Ur Leukocyte Esterase Negative (Negative) Urine RBC 0-2 (0-2) Urine WBC 0-2 (0-5) Ur Squamous Epith Cells None (None-Few) Urine Bacteria None (None) <Rick Alvarez MD - Last Filed: 05/01/23 01:09 INTELLECTUAL PROPERTY MANAGER> Discharge Plan Discharge Clinical Impression: Rupture of cyst of right ovary <Angélica Beckham MD - Last Filed: 05/03/23 12:00> Patient Disposition: Home, Self-Care <Angélica Beckham MD - Last Filed: 05/03/23 12:00> Condition: Stable <Angélica Beckham MD - Last Filed: 05/03/23 12:00> Instructions: Ovarian Cyst (ED) <Angélica Beckham MD - Last Filed: 05/03/23 12:00> Additional Instructions: Pain was likely related to rupture of an ovarian cyst. There is no further cyst noted on the ovary at this time, and no specific treatment is needed. This pain typically improved gradually over 1-2 days. Ibuprofen and/or Tylenol as needed. Other tests are reassuring. Return for severe uncontrolled pain, fevers, vomiting or other new symptoms. If you prefer an alternative to ibuprofen, ketorolac is available from [employer]. <Angélica Beckham MD - Last Filed: 05/03/23 12:00> Prescriptions: No Action ibuprofen 800 mg tablet 800 mg PO PRN acetaminophen 650 mg tablet extended release 650 mg PO Q8H albuterol sulfate 90 mcg/actuation HFA aerosol inhaler 2 puff inhalation Q6H PRN DHA 200 mg capsule PO tizanidine 2 mg tablet 2 - 4 mg PO diazepam 2 mg tablet PO <Angélica Beckham MD - Last Filed: 05/03/23 12:00> Follow Up/Referrals: Tosha Bassett PA-C [Primary Care Provider] - <Angélica Beckham MD - Last Filed: 05/03/23 12:00> Stand Alone Forms: [employer] Info Instructions <Angélica Beckham MD - Last Filed: 05/03/23 12:00>
[2023-04-30 23:05] LABS: Basophils Percent Auto 0.2 % (0.0-3.0); Eosinophils Percent Auto 1.9 % (0.0-7.0); Hematocrit 41.9 % (33.0-51.0); Hemoglobin* 13.5 gm/dL (12.0-16.0); Immature Granulocytes Pct Auto 0.4 %; Mean Corpuscular HGB Conc 32 gm/dL (32-36); Mean Corpuscular Hemoglobin 29 pg (26-34); Mean Corpuscular Volume 90 fL (80-100); Monocytes Percent Auto 5.9 % (0.0-11.0); Neutrophils Percent Auto 57.6 % (42.0-72.0); Platelet Count* 266 K/uL (140-440); RDW Coefficient of Variation % 13.1 % (11.5-15.5); Red Blood Count 4.65 m/uL (4.00-5.20); White Blood Count* 12.63 K/uL (4.50-11.00)
[2023-04-30 23:06] LABS: Slide Review Reflex No
[2023-04-30] MEDS: 0.9 % SODIUM CHLORIDE 1000 ml 1,000 ML IV (23:11)
[2023-04-30 23:28] LABS: Albumin* 3.9 g/dL (3.3-5.0); Chloride* 104 mmol/L (96-114); Sodium* 138 mmol/L (135-149)
[2023-04-30 23:31] LABS: Creatinine* 0.7 mg/dL (0.5-1.5); Est. Creatinine Clearance* 98.09; Estimated Glomerular Filt Rate 120 ml/min
[2023-04-30 23:32] LABS: Alanine Aminotransferase* 19 U/L (4-35); Alkaline Phosphatase* 43 U/L (40-150); Anion Gap 7 mEq/L (7-15); Aspartate Amino Transferase* 35 U/L (12-35); Bilirubin Total* 0.3 mg/dL (0.1-1.5); Blood Urea Nitrogen* 12 mg/dL (5-24); Calcium* 8.9 mg/dL (8.4-10.6); Carbon Dioxide* 27 mmol/L (20-32); Glucose* 83 mg/dL (60-115); Total Protein* 6.8 g/dL (6.0-8.3)
[2023-04-30 23:33] LABS: Appearance Urine Clear (Clear); Bilirubin Urine Negative (Negative); Blood Urine Negative (Negative); Color Urine Yellow (Yellow); Glucose Urine Negative (Negative); Ketones Urine Negative (Negative); Leukocyte Esterase Urine Negative (Negative); Nitrite Urine Negative (Negative); Protein Urine Negative (Negative); Urobilinogen Urine 0.2 (0.2-1.0); pH Urine 6.5 (5.0-8.5)
[2023-04-30 23:34] LABS: C Reactive Protein* 1.1 mg/dL (0.5-1.0)
[2023-04-30 23:41] LABS: HCG Qualitative Serum* Negative (Negative)
[2023-04-30 23:50] LABS: RBC Urine 0-2 (0-2); WBC Urine 0-2 (0-5)
--- NOTE | 2023-05-01 00:32 | CRLHL7_ITS ---
For Patients: As a result of the Century Cures Act, medical imaging exams and procedure reports are released immediately into your electronic medical record. You may view this report before your referring provider. If you have questions, please contact your health care provider. INDICATION: Right lower quadrant abdominal pain TECHNIQUE: CT abdomen and pelvis acquired with 100 cc Isovue 370 IV contrast. COMPARISON: Pelvic ultrasound April 30, 2023 FINDINGS: Lower chest: Unremarkable. Liver: Unremarkable. Spleen: Unremarkable. Pancreas: Unremarkable. Gallbladder and bile ducts: S/p cholecystectomy. Adrenal glands: Unremarkable. Kidneys: Unremarkable. GI tract: Colonic diverticulosis. Appendix is normal. Vascular structures: Unremarkable. Lymph nodes: Unremarkable. Miscellaneous: Unremarkable. No free air or significant free fluid. Pelvic Organs: Unremarkable. Bones: Unremarkable for age. IMPRESSION: No etiology seen to explain right lower quadrant pain appendix. Colonic diverticulosis without evidence for diverticulitis. Status post cholecystectomy. Please note that all CT scans at this facility use dose modulation, iterative reconstruction, and/or weight-based dosing when appropriate to reduce radiation dose to as low as reasonably achievable. Dictated by Rajni Downing MD @ 05/01/2023 1:58:00 AM (Electronically Signed)
[2023-05-01] MEDS: KETOROLAC 30 MG/ML inj IVP (01:16)
[2023-05-01 01:55] VITALS: BP 152/116; PULSE 87; RESP 16; TEMP 36.4; O2SAT 97
== END 2023-05-01 01:16 | disposition home or self-care (01) ==
PROVIDERS: Emergency Provider Emergency Medicine; PCP Student in an Organized Health Care Education/Training Program
DX: N83.201 Unspecified ovarian cyst, right side (principal)
CPT/HCPCS: 36415; 74177; 76830; 76856; 80048; 80076; 81001; 83605; 84703; 85025; 86140; 93976; 96374; 99284; J1885; J7030; Q9967